=== PATIENT | female | born 1985 | race African-American/Black ===

== ENCOUNTER 2016-12-23 17:54 | Emergency (ER) | payer MEDICAID ==
[~2016-12-23] VITALS: Ht 160 cm; Wt 62.1 kg
[2016-12-23 18:01] VITALS: BP 141/89
[2016-12-23 19:44] LABS: Urine Bilirubin Negative (Negative); Urine Blood Negative /uL (Negative); Urine Color Yellow (Yellow); Urine Glucose Normal (Normal); Urine Ketone Negative (Negative); Urine Nitrite Negative (Negative); Urine RBC <1 /hpf (0 - 4); Urine Squamous Epithelial Cell FEW /hpf (<5); Urine Urobilinogen Normal (Negative); Urine pH 5.5 (5.0-8.0)
== END 2016-12-23 23:41 | disposition left against medical advice (07) ==
LOC: ER 17:54
DX: R10.30 Lower abdominal pain, unspecified (principal); R30.0 Dysuria; Z53.21 Procedure and treatment not carried out due to patient leaving prior to being seen by health care provider
CPT/HCPCS: 81001; 81025

== ENCOUNTER 2022-10-12 11:50 | Day surgery (SDC) | payer MEDICAID ==
[~2022-10-12] VITALS: Ht 162.6 cm; Wt 61.2 kg
[~2022-10-12 11:50] MED LIST: AMLO-496 PO; ATO40T PO; DICY10CA PO; LANS30CA57 PO; LEVO25TA6 PO; OXYC325T14 PO
[2022-10-12] MEDS ORDERED: LIDOCAINE VISCOUS 2% 15ML UD ONE (13:06)
[2022-10-12] MEDS ORDERED: MIDAZOLAM HCL 2MG/2ML 2ml VIAL (1mg/ml) ONE (13:23)
[2022-10-12] MEDS ORDERED: fentaNYL CITRATE 100 MCG/2 ML VL ONE (13:23)
[2022-10-12] MEDS ORDERED: PROPOFOL 10 MG/ML 20 ML IV ONE (13:59)
[2022-10-12] MEDS ORDERED: DexAMETHasone SOD PHOS 10MG/1ML VIAL INJ ONE (13:59)
[2022-10-12] MEDS ORDERED: ePHEDrine SULFATE 50 MG/ML AMP IV PRN (14:00)
[2022-10-12] MEDS ORDERED: hydrALAZINE HCL 20 MG/ML VL IV PRN (14:00)
[2022-10-12] MEDS ORDERED: MIDAZOLAM HCL 2MG/2ML 2ml VIAL (1mg/ml) IV PRN (14:00)
[2022-10-12] MEDS ORDERED: LABETALOL HCL 5 MG/ML 4ML SYRINGE IV PRN (14:00)
[2022-10-12] MEDS ORDERED: ONDANSETRON HCL 4 MG/2 ML VIAL IV PRN (14:00)
[2022-10-12] MEDS ORDERED: MORPHINE SULFATE 4 MG/ML SYR/VIAL IV PRN (14:00)
[2022-10-12] MEDS ORDERED: KETOROLAC TROMETH 30 MG/ML 1ML VIAL IV ONE (14:00)
[2022-10-12] MEDS ORDERED: HYDROmorphone HCL 2 MG/ML VL/or syr IV PRN (14:00)
[2022-10-12 14:05] VITALS: BP 106/72
== END 2022-10-12 14:25 | disposition home or self-care (01) ==
LOC: GI 11:50
PROVIDERS: ATTEND Internal Medicine Gastroenterology
DX: R10.11 Right upper quadrant pain (principal); I10 Essential (primary) hypertension; Z79.899 Other long term (current) drug therapy; Z88.8 Allergy status to other drugs, medicaments and biological substances; Z98.51 Tubal ligation status; Z98.890 Other specified postprocedural states; Z20.822 Contact with and (suspected) exposure to COVID-19
CPT/HCPCS: 43239; 88305; 88342; J1100; J2250; J2704; J3010; J7030; U0003

== ENCOUNTER 2023-06-28 13:44 | Inpatient (IN) | payer MEDICAID ==
[~2023-06-28] VITALS: Ht 160 cm; Wt 60.2 kg
[~2023-06-28 13:44] MED LIST changes: -AMLO-496 PO; +AMLO1TAB23 PO
[2023-06-28 14:11] LABS: Basophils # (auto) 0.1 10 ^3/uL (0-0.2); Basophils % (auto) 0.6 % (0.0-2.0); Eosinophils # (auto) 0.1 10 ^3/uL (0-0.8); Eosinophils % (auto) 0.6 % (0.0-7.0); Hematocrit 43.7 % (36.0-46.0); Hemoglobin 14.8 g/dL (12.2-16.2); Lymphocytes # (auto) 2.4 10 ^3/uL (0.4-5.4); Lymphocytes % (auto) 24.6 % (10.0-50.0); Mean Corpuscular Hemoglobin 29.8 pg (28.0-32.0); Mean Corpuscular Hgb Conc. 33.9 g/dL (32.0-36.0); Mean Corpuscular Volume 87.9 fL (80.0-100.0); Monocytes % (auto) 9.7 % (0.0-12.0); Neutrophils # (auto) 6.4 10 ^3/uL (1.6-8.6); Neutrophils % (auto) 64.5 % (37.0-80.0); Nucleated Red Blood Cells % 0.3 %; Red Blood Cells 4.97 10^6/uL (4.0-5.20); Red Cell Distribution Width 13.3 % (11.8-14.3); White Blood Cell 9.9 10^3/uL (4.4-10.8)
[2023-06-28] MEDS ORDERED: PANTOPRAZOLE 40 MG/10 ML VIAL INJ IV ONE (14:15)
[2023-06-28] MEDS ORDERED: MORPHINE SULFATE INJ 2 MG/ml SYRG IV ONE (14:15)
[2023-06-28] MEDS ORDERED: SODIUM CHLORIDE 0.9% 1,000 ML IV ONE (14:15)
[2023-06-28] MEDS ORDERED: PROCHLORPERAZINE EDISYLATE 5 MG/ML 2ML VIAL IV ONE (14:15)
[2023-06-28 14:38] LABS: Urine Bacteria NONE SEEN /hpf (None Seen); Urine Blood 3+ /uL (Negative); Urine Clarity HAZY (Clear); Urine Color PINK (Yellow); Urine Mucus FEW (None Seen); Urine Protein, UAD 2+ (Negative); Urine Specific Gravity 1.024 (1.001-1.035); Urine WBC 24 /hpf (0 - 5); Urine pH 6.5 (5.0-8.0)
[2023-06-28 15:00] LABS: Alanine Aminotransferase 74 U/L (7-40); Albumin 4.8 g/dL (3.2-4.8); Alkaline Phosphatase 87 U/L (46-116); Anion Gap 11 (5-15); Aspartate Aminotransferase 29 U/L (13-40); BUN/Creatinine Ratio 7.8 (10.0-20.0); Bilirubin, Total 0.9 mg/dL (0.2-1.0); Blood Urea Nitrogen 8 mg/dL (9-23); Calcium 9.4 mg/dL (8.7-10.4); Carbon Dioxide 25 mmol/L (20-30); Chloride 100 mmol/L (98-107); Glucose 116 mg/dL (74-106); Potassium 3.2 mmol/L (3.5-5.1); Sodium 136 mmol/L (136-145); Total Protein 7.5 g/dL (5.7-8.2)
[2023-06-28] MEDS ORDERED: NITR-87 PO ×2 (15:23→15:25)
[2023-06-28] MEDS ORDERED: ZOFR4T PO (15:25)
[2023-06-28 23:21] VITALS: PULSE 98; RESP 14; O2SAT 98
[2023-06-29] MEDS ORDERED: cefTRIAXone 1GM/50ML D5W 50 ML IV ONE (01:00)
[2023-06-29] MEDS ORDERED: DOCUSATE SOD 100 MG CAP PO PRN (01:00)
[2023-06-29] MEDS: SODIUM CHLORIDE 0.9% 1,000 ML IV SCH ×2 (01:28→11:31)
[2023-06-29] MEDS: LEVOTHYROXINE SODIUM 25 MCG TAB PO SCH (07:07)
[2023-06-29] MEDS ORDERED: cefTRIAXone 1GM/50ML D5W 50 ML IV SCH (07:30)
[2023-06-29 07:31] LABS: Basophils # (auto) 0 10 ^3/uL (0-0.2); Basophils % (auto) 0.3 % (0.0-2.0); Eosinophils # (auto) 0 10 ^3/uL (0-0.8); Eosinophils % (auto) 0.7 % (0.0-7.0); Hematocrit 37.2 % (36.0-46.0); Hemoglobin 12.6 g/dL (12.2-16.2); Lymphocytes # (auto) 1.8 10 ^3/uL (0.4-5.4); Lymphocytes % (auto) 27.5 % (10.0-50.0); Mean Corpuscular Hemoglobin 29.6 pg (28.0-32.0); Mean Corpuscular Hgb Conc. 33.8 g/dL (32.0-36.0); Mean Corpuscular Volume 87.4 fL (80.0-100.0); Monocytes % (auto) 15.2 % (0.0-12.0); Neutrophils # (auto) 3.8 10 ^3/uL (1.6-8.6); Neutrophils % (auto) 56.3 % (37.0-80.0); Nucleated Red Blood Cells % 0.2 %; Red Blood Cells 4.25 10^6/uL (4.0-5.20); Red Cell Distribution Width 13.1 % (11.8-14.3); White Blood Cell 6.7 10^3/uL (4.4-10.8)
[2023-06-29 08:00] LABS: Alanine Aminotransferase 49 U/L (7-40); Albumin 4.1 g/dL (3.2-4.8); Alkaline Phosphatase 73 U/L (46-116); Anion Gap 9 (5-15); Aspartate Aminotransferase 17 U/L (13-40); BUN/Creatinine Ratio 14.3 (10.0-20.0); Bilirubin, Total 0.8 mg/dL (0.2-1.0); Blood Urea Nitrogen 11 mg/dL (9-23); Calcium 8.6 mg/dL (8.7-10.4); Carbon Dioxide 26 mmol/L (20-30); Chloride 102 mmol/L (98-107); Glucose 93 mg/dL (74-106); Sodium 137 mmol/L (136-145); Total Protein 6.3 g/dL (5.7-8.2)
[2023-06-29 08:08] LABS: Potassium 2.9 mmol/L (3.5-5.1)
[2023-06-29 08:12] VITALS: PULSE 88; RESP 16; O2SAT 97
[2023-06-29] MEDS: ONDANSETRON HCL 4 MG/2 ML VIAL IV PRN ×2 (09:14→14:15)
[2023-06-29] MEDS: MORPHINE SULFATE INJ 2 MG/ml SYRG IV PRN ×3 (09:15→18:52)
[2023-06-29] MEDS: PANTOPRAZOLE 40 MG/10 ML VIAL INJ IV SCH (09:50)
[2023-06-29] MEDS: levoFLOXacin 500MG 100 ML IV SCH (09:56)
[2023-06-29] MEDS ORDERED: POTASSIUM CHL 20 Meq TABLET PO ONE ×2 (10:30→13:00)
[2023-06-29 17:00] VITALS: BP 115/73; PULSE 80; RESP 15; TEMP 98; O2SAT 100
[2023-06-29 17:09] VITALS: BP 115/73; PULSE 80; RESP 15; TEMP 98; O2SAT 100
[2023-06-29] MEDS: HYDROcodone-ACET 5/325MG TAB PO PRN ×2 (17:15→22:31)
[2023-06-29 20:00] VITALS: BP 124/86; PULSE 77; RESP 18; TEMP 97.8; O2SAT 100
[2023-06-29 22:00] VITALS: BP 124/86; PULSE 77; RESP 18; TEMP 97.8; O2SAT 100
[2023-06-30] VITALS (7 sets, daily range): BP systolic 100–123; BP diastolic 43–76; PULSE 57–75; RESP 16–20; TEMP 98.1–98.8; O2SAT 100
[2023-06-30] MEDS: ONDANSETRON HCL 4 MG/2 ML VIAL IV PRN ×4 (00:04→19:47)
[2023-06-30] MEDS: MORPHINE SULFATE INJ 2 MG/ml SYRG IV PRN ×4 (00:05→18:58)
[2023-06-30] MEDS: LEVOTHYROXINE SODIUM 25 MCG TAB PO SCH (06:11)
[2023-06-30] MEDS: SODIUM CHLORIDE 0.9% 1,000 ML IV SCH (06:14)
[2023-06-30 06:54] LABS: Basophils # (auto) 0 10 ^3/uL (0-0.2); Basophils % (auto) 0.4 % (0.0-2.0); Eosinophils # (auto) 0.1 10 ^3/uL (0-0.8); Eosinophils % (auto) 1.5 % (0.0-7.0); Hemoglobin 10.9 g/dL (12.2-16.2); Lymphocytes # (auto) 1.7 10 ^3/uL (0.4-5.4); Lymphocytes % (auto) 29.4 % (10.0-50.0); Mean Corpuscular Hemoglobin 29.8 pg (28.0-32.0); Mean Corpuscular Hgb Conc. 34.1 g/dL (32.0-36.0); Mean Corpuscular Volume 87.7 fL (80.0-100.0); Monocytes # (auto) 0.9 10 ^3/uL (0-1.3); Monocytes % (auto) 15.9 % (0.0-12.0); Neutrophils % (auto) 52.8 % (37.0-80.0); Nucleated Red Blood Cells % 0.1 %; Red Blood Cells 3.66 10^6/uL (4.0-5.20); Red Cell Distribution Width 13.2 % (11.8-14.3); White Blood Cell 5.7 10^3/uL (4.4-10.8)
[2023-06-30 07:49] LABS: Alanine Aminotransferase 35 U/L (7-40); Albumin 3.8 g/dL (3.2-4.8); Alkaline Phosphatase 65 U/L (46-116); Anion Gap 8 (5-15); Aspartate Aminotransferase 13 U/L (13-40); Blood Urea Nitrogen 8 mg/dL (9-23); Calcium 8.3 mg/dL (8.7-10.4); Carbon Dioxide 23 mmol/L (20-30); Chloride 108 mmol/L (98-107); Glucose 92 mg/dL (74-106); Sodium 139 mmol/L (136-145)
[2023-06-30 07:50] LABS: Bilirubin, Total 0.6 mg/dL (0.2-1.0); Total Protein 5.7 g/dL (5.7-8.2)
[2023-06-30] MEDS: PANTOPRAZOLE 40 MG/10 ML VIAL INJ IV SCH (09:09)
[2023-06-30] MEDS: levoFLOXacin 500MG 100 ML IV SCH (09:10)
[2023-06-30] MEDS: HYDROcodone-ACET 5/325MG TAB PO PRN ×3 (09:10→22:01)
[2023-07-01] MEDS: ONDANSETRON HCL 4 MG/2 ML VIAL IV PRN ×2 (02:16→09:45)
[2023-07-01] MEDS: MORPHINE SULFATE INJ 2 MG/ml SYRG IV PRN ×2 (02:16→09:46)
[2023-07-01] MEDS: SODIUM CHLORIDE 0.9% 1,000 ML IV SCH (02:20)
[2023-07-01 04:58] VITALS: BP 106/59; PULSE 60; RESP 19; TEMP 97.5; O2SAT 100
[2023-07-01] MEDS: LEVOTHYROXINE SODIUM 25 MCG TAB PO SCH (06:09)
[2023-07-01] MEDS: HYDROcodone-ACET 5/325MG TAB PO PRN (06:10)
[2023-07-01 06:24] LABS: Anion Gap 6 (5-15); Carbon Dioxide 24 mmol/L (20-30); Chloride 110 mmol/L (98-107); Potassium 4.1 mmol/L (3.5-5.1); Sodium 140 mmol/L (136-145)
[2023-07-01 06:25] LABS: Calcium 8.3 mg/dL (8.7-10.4)
[2023-07-01 06:30] LABS: BUN/Creatinine Ratio 9.7 (10.0-20.0); Blood Urea Nitrogen 9 mg/dL (9-23); Glucose 87 mg/dL (74-106)
[2023-07-01 06:52] LABS: Basophils # (auto) 0 10 ^3/uL (0-0.2); Basophils % (auto) 0.6 % (0.0-2.0); Eosinophils # (auto) 0.1 10 ^3/uL (0-0.8); Eosinophils % (auto) 1.2 % (0.0-7.0); Hematocrit 30.6 % (36.0-46.0); Hemoglobin 10.5 g/dL (12.2-16.2); Lymphocytes # (auto) 2.2 10 ^3/uL (0.4-5.4); Mean Corpuscular Hemoglobin 30.3 pg (28.0-32.0); Mean Corpuscular Hgb Conc. 34.3 g/dL (32.0-36.0); Mean Corpuscular Volume 88.2 fL (80.0-100.0); Monocytes # (auto) 0.8 10 ^3/uL (0-1.3); Monocytes % (auto) 12.8 % (0.0-12.0); Neutrophils # (auto) 2.9 10 ^3/uL (1.6-8.6); Neutrophils % (auto) 48.4 % (37.0-80.0); Nucleated Red Blood Cells % 0.1 %; Red Blood Cells 3.47 10^6/uL (4.0-5.20)
[2023-07-01 08:00] VITALS: PULSE 68; RESP 18; O2SAT 100
[2023-07-01 09:00] VITALS: BP 104/64; PULSE 68; RESP 18; TEMP 98; O2SAT 100
[2023-07-01] MEDS: levoFLOXacin 500MG 100 ML IV SCH (09:45)
[2023-07-01] MEDS: PANTOPRAZOLE 40 MG/10 ML VIAL INJ IV SCH (09:45)
[2023-07-01] MEDS ORDERED: LEVO500T91 PO (10:59)
[2023-07-01] MEDS ORDERED: PERCOT PO (10:59)
[2023-07-01] MEDS ORDERED: ZOFR4T PO (10:59)
[2023-07-01 13:00] VITALS: BP 114/72; PULSE 61; RESP 20; TEMP 97.5; O2SAT 100
[2023-07-01 16:16] VITALS: BP 114/72; PULSE 60; RESP 18; TEMP 97.5; O2SAT 100
[2023-07-01 17:00] VITALS: BP 130/85; PULSE 60; RESP 20; TEMP 97.8; O2SAT 100
== END 2023-07-01 17:00 | disposition home or self-care (01) | DRG 463 ==
LOC: ER 13:44 → OVERFLOW 06-29 01:01 → EAST 06-29 16:08
PROVIDERS: ADMIT Nurse Practitioner Family; ATTEND Internal Medicine
DX: N30.00 Acute cystitis without hematuria (principal); E03.9 Hypothyroidism, unspecified; E87.6 Hypokalemia; F12.90 Cannabis use, unspecified, uncomplicated; R11.2 Nausea with vomiting, unspecified; E78.5 Hyperlipidemia, unspecified; F17.210 Nicotine dependence, cigarettes, uncomplicated; K58.9 Irritable bowel syndrome, unspecified; I10 Essential (primary) hypertension; Z83.3 Family history of diabetes mellitus; Z88.5 Allergy status to narcotic agent; Z88.1 Allergy status to other antibiotic agents; Z98.51 Tubal ligation status
CPT/HCPCS: 36415; 76705; 80048; 80053; 81001; 81025; 83690; 85025; C9113; G0378; J1956; J2405

== ENCOUNTER → 2024-07-20 | Outpatient (CLI) | payer MEDICAID ==
[~2024-07-20] MED LIST changes: -ATO40T PO; +ATOR-507 PO; +LEVO500T91 PO; -OXYC325T14 PO; +ZOFR4T PO
--- NOTE | 2024-07-23 11:37 | DVHSR ---
APPROVED REPORT EXAM: Two-dimensional and M-mode echocardiogram with Doppler and color Doppler. DIMENSIONS LVDd3.8 (3.8-5.7cm)LA (2D)3.5 (1.9-4.0cm)Aortic Root3.1 (2.0-3.7cm) LVDs2.6 (2.5-4.0cm)LA (MM) (1.9-4.0cm)Aortic Cusp Exc1.6 (1.5-2.0cm) EF (%) 62.5 (55-70%)Rt. Atrium3.9 (1.9-4.0cm)Asc. Aorta cm IVSd0.6 (0.7-1.1cm)RV (D)3.5 (1.8-2.4cm) PWd0.6 (0.7-1.1cm) Mitral Valve MitralMitral Stenosis E wave0.96m/sMV Mean GR.mmHg A wave0.75m/sMV Peak GR.mmHg E/A ratio1.32D MVAcm2 DECEL [id number] 1/2 Timems Aortic Valve Aortic ValveAortic Stenosis V11.01m/Caryn Mean GR.4mmHg V21.47m/Caryn Peak GR.9mmHg Pulmonic Valve V20.80m/s Tricuspid Valve TR Velocity1.99m/s [id number] LEFT VENTRICLE The Ejection Fraction is >55%. ATRIA The left atrial size is normal. The right atrium size is normal. MITRAL VALVE The mitral valve is normal in structure and function. There is no mitral valve regurgitation noted. PULMONIC VALVE The pulmonic valve is not well visualized. TRICUSPID VALVE The tricuspid valve is grossly normal. There is trace tricuspid regurgitation. AORTIC VALVE The aortic valve opens well. No aortic regurgitation is present. GREAT VESSELS The aortic root is normal size. PERICARDIAL EFFUSION There is no pericardial effusion. Conclusion EF >55%
== END | disposition home or self-care (01) ==
LOC: Rad HDHVI 15:04
PROVIDERS: ATTEND Internal Medicine Cardiovascular Disease
DX: R00.1 Bradycardia, unspecified (principal); R55 Syncope and collapse
CPT/HCPCS: 93306

== ENCOUNTER → 2024-07-28 | Outpatient (CLI) | payer MEDICAID ==
--- NOTE | 2024-07-28 16:13 | DVH ---
XY CHEST TWO VIEWS ROUTINE CLINICAL HISTORY: SOB COMPARISON: None TECHNIQUE: Frontal and lateral view of the chest was obtained FINDINGS: Lines and Tubes: None Lungs: No focal consolidation. Pleura: No effusion. No pneumothorax. Cardiomediastinal contours: Unremarkable Bones: No acute osseous abnormality. IMPRESSION: 1. No radiographic evidence of acute cardiopulmonary disease. HS:Y
== END | disposition home or self-care (01) ==
LOC: Rad HDHVI 15:49
PROVIDERS: ATTEND Internal Medicine Cardiovascular Disease
DX: R06.02 Shortness of breath (principal)
CPT/HCPCS: 71046

== ENCOUNTER → 2024-09-21 | Outpatient (CLI) | payer MEDICAID ==
[~2024-09-21] VITALS: Ht 162.6 cm; Wt 55.8 kg
[~2024-09-21] MED LIST changes: +ADENOSINE 47 MG in GIVE UN-DILUTED 0 ML IV ONE; +ADENOSINE 90 MG/30 ML INJ IV ONE; +CHOL400C15 PO; +MAGN100T9 PO; +PERCOT PO; +POM PO
== END | disposition home or self-care (01) ==
LOC: Rad HDHVI 09:59
PROVIDERS: ATTEND Internal Medicine Cardiovascular Disease
DX: I10 Essential (primary) hypertension (principal); E78.00 Pure hypercholesterolemia, unspecified; F17.210 Nicotine dependence, cigarettes, uncomplicated; R07.89 Other chest pain; R06.02 Shortness of breath; R00.1 Bradycardia, unspecified; R55 Syncope and collapse
CPT/HCPCS: 78452; 93005; 96374; 96375; A9500; J0153

== ENCOUNTER → 2024-09-23 | Outpatient (CLI) | payer MEDICAID ==
[~2024-09-23] MED LIST changes: -ADENOSINE 47 MG in GIVE UN-DILUTED 0 ML IV ONE; -ADENOSINE 90 MG/30 ML INJ IV ONE
[2024-09-23 12:00] VITALS: BP 123/71; PULSE 53; RESP 16; O2SAT 100
[2024-09-23 12:15] VITALS: BP 119/72; PULSE 51; RESP 16; O2SAT 100
--- NOTE | 2024-09-23 14:18 | DVH ---
XY CHEST TWO VIEWS ROUTINE CLINICAL HISTORY: PRE OP COMPARISON: XY CHEST TWO VIEWS ROUTINE on DOS: 07/28/24 TECHNIQUE: Frontal and lateral view of the chest was obtained FINDINGS: Lines and Tubes: None Lungs: No focal consolidation. Pleura: No effusion. No pneumothorax. Cardiomediastinal contours: Unremarkable Bones: No acute osseous abnormality. IMPRESSION: 1. No acute cardiopulmonary disease.
== END | disposition home or self-care (01) ==
LOC: Rad HDHVI 11:50
PROVIDERS: ATTEND Internal Medicine Cardiovascular Disease
DX: Z01.818 Encounter for other preprocedural examination (principal); R00.1 Bradycardia, unspecified; R00.0 Tachycardia, unspecified
CPT/HCPCS: 71046; 93005; G0463

== ENCOUNTER 2024-09-24 06:45 | Day surgery (SDC) | payer MEDICAID ==
[2024-09-23 13:50] LABS: Basophils # (auto) 0 10 ^3/uL (0-0.2); Basophils % (auto) 0.5 % (0.0-2.0); Eosinophils # (auto) 0.1 10 ^3/uL (0-0.8); Eosinophils % (auto) 1.2 % (0.0-7.0); Hematocrit 36.4 % (36.0-46.0); Hemoglobin 12.3 g/dL (12.2-16.2); Lymphocytes # (auto) 1.9 10 ^3/uL (0.4-5.4); Lymphocytes % (auto) 26.8 % (10.0-50.0); Mean Corpuscular Hemoglobin 30.8 pg (28.0-32.0); Mean Corpuscular Hgb Conc. 33.8 g/dL (32.0-36.0); Monocytes # (auto) 0.4 10 ^3/uL (0-1.3); Monocytes % (auto) 6.4 % (0.0-12.0); Neutrophils # (auto) 4.5 10 ^3/uL (1.6-8.6); Neutrophils % (auto) 65.1 % (37.0-80.0); Nucleated Red Blood Cells % 0.2 %; Platelet Count (auto) 233 10^3/uL (140-450); Red Cell Distribution Width 13.4 % (11.8-14.3)
[2024-09-23 14:09] LABS: INR 1.02 (0.9-1.15); Partial Thromboplastin Time 22.6 SEC (24.5-34.5); Prothrombin Time 10.8 sec (9.3-11.8)
[2024-09-23 14:17] LABS: Potassium 4.5 mmol/L (3.5-5.1); Sodium 140 mmol/L (136-145)
[2024-09-23 14:18] LABS: Anion Gap 6 (5-15); Carbon Dioxide 26 mmol/L (20-31)
[2024-09-23 14:19] LABS: Calcium 9.5 mg/dL (8.7-10.4)
[2024-09-23 14:23] LABS: BUN/Creatinine Ratio 8.8 (10.0-20.0); Glucose 88 mg/dL (74-106)
[2024-09-23 14:25] LABS: Blood Urea Nitrogen 7 mg/dL (9-23); Chloride 108 mmol/L (98-107)
[~2024-09-24] VITALS: Ht 162.6 cm; Wt 55.8 kg
[2024-09-24] MEDS: LORazepam 2MG/ML-1ML VIAL IV ONE (12:03)
[2024-09-24] MEDS ORDERED: fentaNYL CITRATE 100 MCG/2 ML VL ONE (12:39)
[2024-09-24] MEDS ORDERED: VANCOMYCIN HCL 1000 MG VL ONE (12:39)
[2024-09-24] MEDS ORDERED: VANCOMYCIN 1GM/250ML KIT 250 ML IV ONE (12:40)
[2024-09-24] MEDS ORDERED: LIDOCAINE 2%HCL (LOCAL ANESTH.) INJ 20ML MDV ONE ×2 (12:40→12:44)
[2024-09-24] MEDS ORDERED: MIDAZOLAM HCL 2MG/2ML 2ml VIAL (1mg/ml) ONE (12:40)
--- NOTE | 2024-09-24 14:13 | DVHDS ---
DATE OF DISCHARGE: 09/24/2024 DISCHARGE DIAGNOSIS: The patient with bradycardia, requires a permanent pacemaker, but her situation is such that she has so low pain tolerance. At this time, she is not capable of doing the permanent pacemaker under conscious sedation or local anesthesia. She will require general anesthesia. At this time, I am not set up for general anesthesia. I will discharge the patient and will bring her back after I have another lengthy discussion with her the risk of general anesthesia, need to consult an anesthesiologist and schedule it appropriately. Therefore, at this time, I was not able to perform the permanent pacemaker. Héctor Poe MD SA/ELYSE TID: [id number] RECEIPT: [id number]
--- NOTE | 2024-09-24 14:19 | DVHHP ---
ADMIT DATE: 09/24/2024 HISTORY OF PRESENT ILLNESS: The patient who is a 39-year-old, who presents with signs and symptom complex of sick sinus syndrome, marked bradycardia. At this time, I have recommended the patient may benefit from permanent pacemaker implantation and therefore permanent pacemaker has been scheduled. She is chronic pain dependent. She is taking Percocet 10/325 on a multiple dose basis. She is also morbidly obese and has extensive tattoos throughout the body. Because I believe she has amyloidosis, because of the sick sinus syndrome and amyloidosis, because pyrophosphate scan findings are consistent with amyloid and therefore I believe the bradycardia that she is experiencing secondary to conduction abnormality caused by amyloidosis. At this time, however, the patient has very low pain tolerance and even touching her starting an IV, the nurse is already complaining she has significant pain intolerance. PHYSICAL EXAMINATION: VITAL SIGNS: Blood pressure is 138/86, pulse 65, O2 saturation 97% on room air. HEENT: Pupils are reactive. Funduscopic exam is benign. Sclerae anicteric. Oral mucosa moist. Posterior pharynx without exudates. NECK: No JVD appreciated. Carotid pulses are 2+ symmetrical. Normal upstroke and contour. No cervical adenopathy. No supraclavicular adenopathy. PULMONARY: Clear to auscultation. CARDIOVASCULAR: Regular rate without S3, without S4. ABDOMEN: Obese, unable to appreciate organomegaly. Stool guaiac negative. NEUROLOGIC: The patient is intact. DTRs are 2+ symmetrical. Cranial nerves 2 through 12 within normal limits. Sensory and motor modalities are intact. Negative for ataxia. Negative for Babinski. Negative for pronator drift. EXTREMITIES: No edema noted. ASSESSMENT AND PLAN: Thus, the patient with marked bradycardia. Pyrophosphate scan is consistent with possibility of amyloidosis. She will require further genetic testing. She may require a permanent pacemaker, but the patient has very low pain tolerance and even starting an IV was difficult on her. We will attempt to do a pacemaker at this time. Héctor Poe MD SA/ZEB/SHAGGY TID: [id number] RECEIPT: [id number]
--- NOTE | 2024-09-24 14:22 | DVHOP ---
DATE OF SURGERY: 09/24/2024 Procedure attempted to be performed was subcutaneous permanent pacemaker implantation. The patient with marked bradycardia with pauses and the patient may have amyloidosis. The patient was scheduled to undergo permanent pacemaker. The patient was prepped and draped under sterile condition. However, the patient received 2 mg of Versed, 1 mg of Dilaudid and also fentanyl 100. Despite this, the patient was screaming at top of her lung when I started anesthetizing the local left subclavian region. Only 2 mL was given and the patient becoming very agitated, screaming and therefore at this time, I do not believe under local anesthesia and conscious sedation, this procedure can be done because she will be screaming throughout the procedure and high risk for pneumothorax as well as for infection and complications. Therefore, I terminated the procedure immediately upon her noncompliance. She has very low pain tolerance. She has extensive tattoos throughout the body and yet she has severe pain intolerance, and especially since the patient is on Percocet at a very young age, I believe that is one of the reason why she has low pain intolerance. I will discontinue the procedure. We will reassess the patient and will consider for general anesthesia before doing a permanent pacemaker, otherwise it will become prohibitive risk. Héctor Poe MD SA/ELYSE/DAVID TID: [id number] RECEIPT: [id number]
== END 2024-09-24 14:58 | disposition home or self-care (01) ==
LOC: CATH 06:45
PROVIDERS: ATTEND Internal Medicine Cardiovascular Disease
DX: R00.1 Bradycardia, unspecified (principal); Z53.8 Procedure and treatment not carried out for other reasons; I49.5 Sick sinus syndrome; I49.3 Ventricular premature depolarization; R79.1 Abnormal coagulation profile; E85.9 Amyloidosis, unspecified; G89.29 Other chronic pain; E66.01 Morbid (severe) obesity due to excess calories; Z68.21 Body mass index [BMI] 21.0-21.9, adult; Z79.899 Other long term (current) drug therapy; Z88.5 Allergy status to narcotic agent; Z88.8 Allergy status to other drugs, medicaments and biological substances
CPT/HCPCS: 33207; 36415; 80048; 85025; 85610; 85730; J2060; J2250; J3010; J3370; 99152